=== PATIENT | male | born 1970 | race Native Hawaiian/Other Pacific Islander ===

== ENCOUNTER 2022-12-06 16:29 | Emergency (ER) | payer MEDICAID, SELFPAY ==
[2022-12-06] VITALS (16 sets, daily range): BP systolic 123–136; BP diastolic 79–91; PULSE 59–80; RESP 22; TEMP 36.3; O2SAT 95–100; BMI 28.2
[2022-12-06 17:30] LABS: PCR FLU A Negative PCR FLU A (Negative); PCR FLU B Negative PCR FLU B (Negative); PCR RSV Negative PCR RSV (Negative)
[2022-12-06 17:33] LABS: SARS PCR* Negative SARS-CoV-2 (Negative)
--- NOTE | 2022-12-06 18:11 | ED_ITS ---
HPI - General Adult General Time Seen by Provider: 18:11 Date Seen: 12/06/22 Chief complaint: Cough Stated complaint: Cough Fever Time Seen by Provider: 12/06/22 16:51 Source: patient and RN notes reviewed Mode of arrival: ambulatory Limitations: no limitations History of Present Illness HPI narrative: Patient is a very pleasant 52-year-old male seen with the aid of the nursing administrator coming in with concern of cough and fever. He has had no travel, no known ill exposure. Was able to share with him that his viral triple swab is negative, nursing staff had collected it on arrival. Cough is somewhat productive. He has felt chilled at night but otherwise has not checked his temperature. He does believe he has been running fevers. No associated GI sym ptoms with this. No swelling. He is status post kidney transplant and is on immunosuppressants per report. He is coughing a dry recurrent cough during my whole interaction with him. He is not short of breath, no chest pain. Related Data Previous Rx's Medication Instructions Recorded codeine 10 mg-guaifenesin 100 mg/5 5 ml PO Q4-6H PRN #120 mL 12/06/22 mL oral liquid doxycycline monohydrate 100 mg 100 mg PO BID 10 days #19 caps 12/06/22 capsule Allergies Allergy/AdvReac Type Severity Reaction Status Date / Time latex Allergy Mild Rash Verified 12/06/22 20:20 Review of Systems Status of ROS: Reports: 10 or more systems reviewed and unremarkable except as noted in History and below PFSH PFSH Social History Smoking Status: Never smoker Do you use any of these nicotine containing products: None Second hand tobacco smoke exposure: Yes How often do you have a drink containing alcohol: never How often do you have six or more drinks on one occasion: Never AUDIT-C Alcohol total score: 0 Non-prescribed substance use: denies use service: No Exam Const: Vital Signs, click to edit/add: Vital Signs - 24 hr 12/06/22 16:46 12/06/22 18:17 12/06/22 17:51 Temperature 97.4 F L Pulse Rate 62 Pulse Rate [Pulse Oximeter] 80 Respiratory Rate 22 Blood Pressure 125/79 Blood Pressure [Ri ght Upper Arm] 123/79 Pulse Oximetry 96 96 Oxygen Delivery Me thod Room Air Room Air 12/06/22 17:52 12/06/22 18:00 12/06/22 18:02 Temperature Pulse Rate 65 60 61 Pulse Rate [Pulse Oximeter] Respiratory Rate Blood Pressure 124/79 Blood Pressure [Ri ght Upper Arm] Pulse Oximetry 96 96 97 Oxygen Delivery Me thod Alert, interactive, coughing. Speech is normal between coughing, not hoarse. Pupils equal round reactive to light, sclera clear, extraocular muscles intact. Oropharynx from [place] and exits erythema dentition good repair. Neck is supple, no thyromegaly masses or nodules, no cervical adenopathy. Lungs with some bibasilar crackles, more of a rubber rhonchi on the right side as well posteriorly. Do not hear any wheezing, good air entry. CV regular rate and rhythm no murmur, normal S1-S2, no S3 or S4. Abdomen is soft, no rebound or guarding organomegaly. He has absolutely no lower extremity edema. Can see that he has had a prior left fistula in the arm. Documenting provider has reviewed patient's vital signs: yes Course Course Hospital Course: He is not hypoxic when I am in with him, O2 sats 97% on room air but has repetitive cough. I do think bacterial pneumonia and possibly atypical lung infections are possibility. We are going to proceed with some basic blood work as well as start with a two view chest x-ray. The viral triple swab is negative for RSV, influenza, COVID-19 which was shared with him. Reevaluation(s) Reevaluation #1: Reviewed with patient that his chest x-ray is normal, he continues to cough while I am in with him. Reviewed labs. I am concerned that he has a atypical or developing secondary bacterial pneumonia. Would recommend that we initiate antibiotics. He would like his 1st dose here and then prescription sent to pharmacy. I did agree to send some Robitussin with codeine, small amount to be taken at bedtime. He is fine getting that tomorrow. Did check the drug check her for his antirejection drugs Sensipar and there was no noted interaction with doxycycline. Time: 20:15 Vital Signs Vital signs: Initial Vital Signs Temperature 97.4 F L 12/06/22 16:46 Temperature Source Temporal Artery Scan 12/06/22 16:46 Pulse Rate 80 12/06/22 16:46 Pulse Rhythm Regular 12/06/22 16:46 Respiratory Rate 12/06/22 16:46 Blood Pressure 123/79 12/06/22 16:46 Blood Pressure Mean 93 12/06/22 16:46 Blood Pressure Position Sitting 12/06/22 16:46 Pulse Oximetry 96 12/06/22 16:46 Oxygen Delivery Method Room Air 12/06/22 16:46 Vital Signs Temperature 97.4 F L 12/06/22 16:46 Pulse Rate 80 12/06/22 16:46 Respiratory Rate 22 12/06/22 16:46 Blood Pressure 123/79 12/06/22 16:46 Pulse Oximetry 96 12/06/22 16:46 Oxygen Delivery Method Room Air 12/06/22 16:46 Temperature 97.4 F L 12/06/22 16:46 Pulse Rate 61 12/06/22 18:02 Respiratory Rate 22 12/06/22 16:46 Blood Pressure 124/79 12/06/22 18:02 Pulse Oximetry 97 12/06/22 18:02 Oxygen Delivery Method Room Air 12/06/22 18:17 Medical Decision Making Lab Data Lab results reviewed: Yes I reviewed the patient's lab results Labs: Lab Results 12/06/22 12/06/22 Range/Units 16:40 18:23 WBC 10.65 (4.50-11.00) K/uL RBC 5.09 (4.30-5.90) m/uL Hgb 14.6 (13.5-17.5) gm/dL Hct 43.0 (37.0-53.0) % MCV 85 (80-100) fL MCH 29 (26-34) pg MCHC 34 (32-36) gm/dL RDW Coeff of Davin 12.0 (11.5-15.5) % Plt Count 241 (140-440) K/uL Neut % (Auto) 84.9 H (42.0-72.0) % Lymph % (Auto) 8.5 L (20-44) % [place] % (Auto) 5.4 (0.0-11.0) % Eos % (Auto) 0.0 (0.0-7.0) % Baso % (Auto) 0.1 (0.0-3.0) % Neut # (Auto) 9.00 H (1.7-7.0) K/uL Lymph # (Auto) 0.90 (0.90-2.90) K/uL [place] # (Auto) 0.60 (0.00-0.90) K/UL Eos # (Auto) 0.00 (0.00-0.50) K/uL Baso # (Auto) 0.00 (0.00-0.30) K/uL Sodium 137 (135-149) mmol/L Potassium 4.9 (3.6-5.1) mmol/L Chloride 106 (96-114) mmol/L Carbon Dioxide 23 (20-32) mmol/L BUN 20 (7-30) mg/dL Creatinine 1.3 (0.5-1.5) mg/dL Estimated Creat Clear 60.66 Estimated GFR 67 ml/min Glucose 128 H (60-115) mg/dL Calcium 9.4 (8.4-10.6) mg/dL C-Reactive Protein 5.9 H (0.5-1.0) mg/dL SARS-CoV-2 (PCR) Negative SARS-CoV-2 (Negative) Influenza Type A (PCR) Negative PCR FLU A (Negative) Influenza Type B (PCR) Negative PCR FLU B (Negative) RSV (PCR) Negative PCR RSV (Negative) Imaging Data Chest x-ray: Attestation: I have reviewed the pertinent imaging results. Radiologist's impression: Patient: KINA WHEELER Facility:?[facility] Patient ID:?[id number] Site Patient ID:?[id number]. Site :?11/05/2011 Study:?XRay Chest PORTABLE-12/06/2022 4:43:29 PM Ordering Physician:Taiwo Leigh Final Report: INDICATION: Syncopal. TECHNIQUE: Chest 1 view. COMPARISON: None. FINDINGS: No focal consolidation, pleural effusion, or pneumothorax. Normal heart size and pulmonary vascularity. The bones are unremarkable. IMPRESSION: No acute cardiopulmonary findings. Dictated by Rama Holman MD @ 12/06/2022 5:58:09 PM (Electronic Signature) Critical Care Time Critical Care Time Critical Care Time: No Discharge Plan Discharge Clinical Impression: Community acquired pneumonia Patient Disposition: Home, Self-Care Condition: Stable Instructions: Community Acquired Pneumonia (ED) Additional Instructions: Continue with antibiotics, next dose due tomorrow morning. Have written for small amount of Robitussin with codeine to be used at bedtime to help you sleep. If you are not improving over the next week, or worsening at any point, do need to be re-evaluated. Contin?e con antibi?ticos, pr?xima dosis ma?[place] por la ma?shiloh. He escrito para que se use katheryn kyle?a cantidad de Robitussin con code?na a la hora de acostarse para ayudarlo a dormir. Si no mejora marco antonio la pr?xima semana, o empeora en alg?n momento, debe volver a evaluarse. Activity Level: Activity as Tolerated Prescriptions: New codeine-guaifenesin 10-100 mg/5 mL liquid 5 ml PO Q4-6H PRNQty: 120 0RF Rx Instructions: Can use at night to help with sleep doxycycline monohydrate 100 mg capsule 100 mg PO BID 10 Days Qty: 19 0RF Stand Alone Forms: [facility] Info Instructions
--- NOTE | 2022-12-06 18:12 | CRLHL7_ITS ---
For Patients: As a result of the Cures Act, medical imaging exams and procedure reports are released immediately into your electronic medical record. You may view this report before your referring provider. If you have questions, please contact your health care provider. INDICATION: Cough, fever. TECHNIQUE: Chest 2 views. COMPARISON: CT 06/20/2015. FINDINGS: Cardiovascular and mediastinum: Heart size and vasculature are normal in caliber and appearance. Lungs and pleural spaces: Lungs are clear. No sign of infiltrate or mass. No sign of pleural effusion. No pneumothorax. Bones and soft tissues: No significant findings. IMPRESSION: No acute cardiopulmonary abnormalities. Dictated by Jeronimo Lopez MD @ 12/06/2022 7:37:22 PM (Electronically Signed)
[2022-12-06 18:43] LABS: Chloride* 106 mmol/L (96-114); Potassium* 4.9 mmol/L (3.6-5.1); Sodium* 137 mmol/L (135-149)
[2022-12-06 18:46] LABS: Blood Urea Nitrogen* 20 mg/dL (7-30); Carbon Dioxide* 23 mmol/L (20-32); Creatinine* 1.3 mg/dL (0.5-1.5); Est. Creatinine Clearance* 60.66; Estimated Glomerular Filt Rate 67 ml/min; Glucose* 128 mg/dL (60-115)
[2022-12-06 18:47] LABS: Calcium* 9.4 mg/dL (8.4-10.6)
[2022-12-06 18:49] LABS: C Reactive Protein* 5.9 mg/dL (0.5-1.0)
[2022-12-06 18:56] LABS: Red Blood Count 5.09 m/uL (4.30-5.90); White Blood Count* 10.65 K/uL (4.50-11.00)
[2022-12-06 18:57] LABS: Basophils Percent Auto 0.1 % (0.0-3.0); Hemoglobin* 14.6 gm/dL (13.5-17.5); Immature Granulocytes Pct Auto 1.1 %; Lymphocytes Percent Auto 8.5 % (20-44); Mean Corpuscular HGB Conc 34 gm/dL (32-36); Mean Corpuscular Hemoglobin 29 pg (26-34); Mean Corpuscular Volume 85 fL (80-100); Monocytes Percent Auto 5.4 % (0.0-11.0); Neutrophils Percent Auto 84.9 % (42.0-72.0); Platelet Count* 241 K/uL (140-440); Slide Review Reflex No
[2022-12-06] MEDS: DOXYCYCLINE HYCLATE 100 MG CAPSULE PO (20:46)
== END 2022-12-06 20:50 | disposition home or self-care (01) ==
PROVIDERS: Emergency Provider Family Medicine
DX: J18.9 Pneumonia, unspecified organism (principal)
CPT/HCPCS: 36415; 71046; 80048; 85025; 86140; 87631; 99284; A9270